=== PATIENT | female | born 1975 | race Caucasian/White ===

== ENCOUNTER 2017-04-12 11:17 | Emergency (ER) | payer OTHER ==
[2017-04-12 11:31] VITALS: O2SAT 98
[2017-04-12] MEDS ORDERED: IPRATROPIUM/ALBUTEROL 3 ML DEYVIAL IH ONE (11:32)
[2017-04-12] MEDS ORDERED: predniSONE 20 MG TAB PO ONE (11:32)
--- NOTE | 2017-04-12 11:36 | EDPHY ---
H & P Time Seen by Provider: 04/12/17 11:27 HPI/ROS: CHIEF COMPLAINT: Cough, cold HISTORY OF PRESENT ILLNESS: The patient is a 41-year-old female with a history of asthma. She states that she got URI type symptoms 2 days ago. Her fiance was sick with similar symptoms previously. She states that she has had increasing cough. Now her asthma is "acting up." She went to see her primary care physician and was sent to the emergency department for evaluation. The patient states her chest feels tight. She has been using her albuterol nebulizer every 3 hr. She is not on any steroids currently. She denies fevers or chills. No abdominal pain. No leg pain or swelling. REVIEW OF SYSTEMS: My complete review of systems is negative except as mentioned in the HPI. Past Medical/Surgical History: Includes asthma Past surgical history: Ovarian cyst Smoking Status: Former smoker Physical Exam: Vitals noted GENERAL: No acute distress, alert. Intermittent coughing. HEENT: Eyes normal to inspection, normal pharynx, no signs of dehydration. NECK: No thyromegaly, no lymphadenopathy, supple. RESPIRATORY: Good air movement. Coarse breath sounds bilaterally. No significant wheezing. No retractions or accessory muscle use. No rales or rhonchi. CVS: Regular rate and rhythm, no rubs, murmurs, or gallops. ABDOMEN: Soft, nontender, nondistended. BACK: Normal to inspection, no CVA tenderness. SKIN: Normal color, no rash, warm, dry. No pallor. EXTREMITIES: No pedal edema, no calf tenderness, no Homans sign or cords, no joint swelling. NEURO/PSYCH: Alert and oriented, normal mood and affect, normal motor sensory exam. Constitutional: Initial Vital Signs Temperature (C) 37.1 C 04/12/17 11:27 Heart Rate 74 04/12/17 11:27 Respiratory Rate 22 H 04/12/17 11:27 Blood Pressure 127/68 H 04/12/17 11:27 O2 Sat (%) 98 04/12/17 11:27 O2 Delivery Mode Room Air Allergies/Adverse Reactions: prednisone [Prednisone] Allergy (Severe, Verified 04/12/17 11:26) joint pain morphine Allergy (Intermediate, Verified 04/12/17 11:26) Rash Home Medications: Medication Instructions Recorded Bc Pill 06/17/15 AZITHROMYCIN [Z-PACK] 250 mg PO DAILY #1 packet 04/12/17 Albuterol Sulfate [ALBUTEROL 1.25 mg IH QID #20 04/12/17 SULFATE 1.25 MG/3 ML] predniSONE 20 mg PO DAILY 4 Days tab 04/12/17 Medical Decision Making - Diagnostics Imaging Results: Imaging Impressions Chest X-Ray 04/12/17 11:32 Impression: Suspect airways disease. No definite pneumonia. ED Course/Re-evaluation: In the emergency department I discussed possible etiologies with the patient. I answered all her questions. I recommended a DuoNeb treatment. The patient states that she is able to tolerate prednisone but it gives her body aches. Prednisone was given. A chest x-ray was ordered. Chest x-ray: Airway disease. No focal infiltrate. 1245: I rechecked with the patient. She was lying in bed comfortably. She was not actively short of breath. She had no accessory muscle use. She did have clear breath sounds bilaterally. When I asked her to take a deep breath on exam she would have episodes of coughing. I discussed all results. The patient will be discharged with azithromycin, prednisone and albuterol. Differential Diagnosis: My differential includes but is not limited to asthma exacerbation, URI, pneumonia, bronchitis, pneumothorax - Data Points Medications Given: Discontinued Medications Albuterol/Ipratropium (Duoneb) 3 ml IH EDNOW ONE Stop: 04/12/17 11:33 Last Admin: 04/12/17 11:40 Dose: 3 ml Prednisone (Prednisone) 60 mg PO EDNOW ONE Stop: 04/12/17 11:33 Last Admin: 04/12/17 11:40 Dose: 60 mg Departure - Departure Disposition: Home, Routine, Self-Care Clinical Impression: Bronchitis with asthma, acute Dyspnea Qualifiers: Dyspnea type: unspecified Qualified Code(s): R06.00 - Dyspnea, unspecified Exacerbation of asthma Qualifiers: Asthma severity: moderate Asthma persistence: persistent Qualified Code(s): J45.41 - Moderate persistent asthma with (acute) exacerbation Condition: Good Instructions: Asthma (ED), Upper Respiratory Infection (ED) Additional Instructions: Return with increasing shortness of breath, increased cough, persistent fever or any other concerns. Take your entire course of antibiotics. Referrals: Tere Yeager, [Primary Care Provider] - 2-3 days, call for appt. Prescriptions: Albuterol Sulfate [ALBUTEROL SULFATE 1.25 MG/3 ML] 1.25 mg IH QID #20 AZITHROMYCIN [Z-PACK] 250 mg PO DAILY #1 packet predniSONE 20 mg PO DAILY 4 Days tab
[2017-04-12 12:56] VITALS: BP 108/73; PULSE 86; RESP 20; TEMP 98.6
== END 2017-04-12 12:56 | disposition home or self-care (01) ==
LOC: CED 11:17
DX: J45.41 Moderate persistent asthma with (acute) exacerbation (principal); J20.9 Acute bronchitis, unspecified; Z87.891 Personal history of nicotine dependence
CPT/HCPCS: 71020-PO